=== PATIENT | male | born 1985 | race Caucasian/White ===

== ENCOUNTER 2019-07-05 13:14 | Emergency (ER) | payer BC, MEDICAID ==
[~2019-07-05] VITALS: Ht 175.3 cm; Wt 94.8 kg
--- NOTE | 2019-07-05 13:21 | NUR ---
[id number] patient sts "he smoked too much cocaine" c/o sweating, palpitations, to ER bed 14, hooked to monitor, changed to hosp gown, warm blabket provided. Dr Beverly at bedside
[2019-07-05] MEDS ORDERED: LORAZEPAM INJ 2 MG/ML VIAL ONE (13:27)
[2019-07-05] MEDS ORDERED: IV NS 0.9% 1,000 ML BAG IV ONE (13:30)
[2019-07-05] MEDS ORDERED: LORAZEPAM INJ 2 MG/ML VIAL IV ONE (13:30)
--- NOTE | 2019-07-05 16:09 | NUR ---
IV removed. Catheter intact and site benign. Pressure and 4x4 applied to site. No bleeding noted.Patient discharged to home in stable condition. Written and verbal after care instructions given. Patient verbalizes understanding of instruction.
[2019-07-05 16:10] VITALS: BP 145/99
== END 2019-07-05 16:11 | disposition home or self-care (01) ==
LOC: ER 13:17
DX: F14.10 Cocaine abuse, uncomplicated (principal); F11.10 Opioid abuse, uncomplicated; F41.9 Anxiety disorder, unspecified; R11.2 Nausea with vomiting, unspecified; R61 Generalized hyperhidrosis; F31.9 Bipolar disorder, unspecified; F17.200 Nicotine dependence, unspecified, uncomplicated
CPT/HCPCS: 93005; 96361; 96374; 99283; J2060; J7030